=== PATIENT | female | born 1970 | race Caucasian/White ===

== ENCOUNTER → 2018-12-16 | Day surgery (SDC) | payer OTHER ==
[~2018-12-16] MED LIST: CHOL100013 PO; CYCL1DRO EACHEYE; HYDROmorphone 2 MG/ML VIAL IV PRN; IV RINGERS,LACTATED 1000ML 1,000 ML IV SCH; LIDOCAINE 1% PF 2 ML VIAL. ID PRN; MORPHINE SULFATE 2 MG/ML VIAL. IV PRN; MULT1TAB52 PO; OMEP20TA63 PO; ONDANSETRON PF 4 MG/2 ML VIAL. IV PRN; PROCHLORPERAZINE 10 MG/2 ML VIAL. IV PRN; PROPOFOL 40 ML IV ONE; PROPOFOL 60 ML IV ONE; fentaNYL PF VIAL 100 MCG/2 ML VIAL IV PRN
[2018-12-16 08:16] LABS: U PREG PATIENT NEGATIVE
[2018-12-16 09:45] VITALS: BP 149/72
--- NOTE | 2018-12-17 15:06 | PATHOLOGY ---
[facility] Accession Number: [id number] . 01 Material submitted: . PART A: small bowel - SMALL BOWEL BIOPSY PART B: stomach - RANDOM GASTRIC BIOSY PART C: esophagus, E-G Junction - GE JUNCTION BIOPSY PART D: esophagus - DISTAL ESOPHAGUS BIOPSY. Modifiers: distal PART E: esophagus - PROXIMAL ESOPHAGUS BIOPSY. Modifiers: proximal PART F: colon - ASCENDING COLON POLYP. Modifiers: ascending PART G: colon - RANDOM COLON BIOPSY PART H: colon - TRANSVERSE POLYP BIOPSY. Modifiers: transverse PART I: colon - DESCENDING POLYP. Modifiers: descending . 01 Clinical history: . GERD, [facility] . 02 Diagnosis: A. Small bowel biopsies: - No significant pathologic abnormalities. . B. Random gastric biopsies: - Mild chronic gastritis. . C. Gastroesophageal junction biopsies: - Segments of esophagogastric and gastric mucosa showing chronic inflammation. . D. Esophageal biopsies, distal esophagus: - Segments of mildly hyperplastic squamous esophageal mucosa consistent with reflux esophagitis. . E. Esophageal biopsies, proximal esophagus: - Segments of mildly hyperplastic squamous esophageal mucosa. . F. Colon biopsies, ascending colon polyp: - Consistent with hyperplastic polyp / prominent mucosal fold. . G. Colonic mucosa, random colon biopsies: - No significant pathologic abnormalities, with several mucosal-associated lymphoid aggregates. . H. Colon biopsies, transverse colon polyp: - Tubular adenoma. . I. Colon biopsy, descending colon polyp: - Tubular adenoma. . (JPM:ryan; 12/17/2018) QL/12/17/2018 . 02 Comment: Sections of the small bowel biopsy reveal segments of duodenal mucosa. Where best oriented, the mucosal villi show no sprue-like changes or significant inflammatory changes. Sections of the random gastric biopsy reveal segments of gastric body and gastric antral mucosa. The gastric body mucosa shows congestion and mild superficial chronic inflammation. The gastric antral mucosa also shows congestion and mild chronic inflammation. A properly-controlled immunoperoxidase stain for Helicobacter is negative for Helicobacter organisms. Sections of the gastroesophageal junction biopsy reveal segments of esophagogastric mucosa showing mild to moderate chronic inflammation. There is no evidence of Ruiz's change, dysplasia or malignancy. Sections of the distal and proximal esophageal biopsies appear similar and reveal segments of mildly hyperplastic squamous esophageal mucosa consistent with reflux esophagitis. There is no evidence of Ruiz's change, dysplasia or malignancy. Sections of the ascending colon biopsy reveal segments of colonic mucosa consistent with hyperplastic polyp / prominent fold. There are no adenomatous changes or evidence of malignancy. Sections of the random colon biopsy reveal multiple segments of colonic mucosa containing several mucosal-associated lymphoid aggregates. There is no evidence of a chronic destructive colitis, lymphocytic colitis or collagenous colitis. Sections of the transverse colon and descending colon polyp biopsies appear similar and reveal tubular adenomas showing no high grade dysplasia or evidence of malignancy. . Special stain performed: Immunoperoxidase stain for Helicobacter on B1. (JPM:mml; 12/17/2018) . 02 Electronically signed: . Kervin York MD, Pathologist NPI- [id number] . 01 Gross description: . A. Received in formalin labeled "JosephAna, small bowel BX," are 4 segments of owens soft tissue measuring 1.1 x 0.9 x 0.2 cm in aggregate dimensions and ranging from 0.4 to 0.5 cm in maximum dimension. The specimen is submitted entirely in cassette A1. . B. Received in formalin labeled "JosephLatriciaie, random gastric BX, rule out H. pylori," are 4 segments of owens soft tissue measuring 0.9 x 0.9 x 0.3 cm in aggregate dimensions and ranging from 0.4 to 0.5 cm in maximum dimension. The specimen is submitted entirely in cassette B1. . C. Received in formalin labeled "Joseph, Ana, GE junction BX," are 2 segments of owens soft tissue measuring 0.9 x 0.2 x 0.2 cm in aggregate dimensions and ranging from 0.4 to 0.5 cm in maximum dimension. The specimen is submitted entirely in cassette C1. . D. Received in formalin labeled "JosephAna carballo, distal esophagus BX," are 3 segments of owens soft tissue measuring 0.6 x 0.4 x 0.2 cm in aggregate dimensions and ranging from 0.2 to 0.3 cm in maximum dimension. The specimen is submitted entirely in cassette D1. . E. Received in formalin labeled "Ana Ruiz, proximal esophagus biopsy," are 3 segments of owens soft tissue measuring 0.5 x 0.5 x 0.1 cm in aggregate dimensions and ranging from 0.2 to 0.3 cm in maximum dimension. The specimen is submitted entirely in cassette E1. . F. Received in formalin labeled "Ana Ruiz, ascending colon polyp BX," are 2 segments of owens soft tissue measuring 0.9 x 0.3 x 0.2 cm in aggregate dimensions and ranging from 0.4 to 0.5 cm in maximum dimension. The specimen is submitted entirely in cassette F1. . G. Received in formalin labeled "Ana Ruiz, random colon BX," are 6 segments of owens soft tissue measuring 1.3 x 0.5 x 0.1 cm in aggregate dimensions and ranging from 0.2 to 0.3 cm in maximum dimension. The specimen is submitted entirely in cassette G1. . H. Received in formalin labeled "Ana Ruiz, transverse polyp BX," are 4 segments of owens soft tissue measuring 0.9 x 0.8 x 0.2 cm in aggregate dimensions and ranging from 0.1 to 0.3 cm in maximum dimension. The specimen is submitted entirely in cassette H1. . I. Received in formalin labeled "Ana Ruiz, descending polyp BX," is a single segment of owens soft tissue measuring 0.4 cm in maximum dimension. The specimen is entirely submitted in cassette I1. (TSD; 12/16/2018) TOB/TOB . 02 Pathologist provided ICD-10: K29.50, K20.8, K21.0, K63.5, D12.3, D12.4 . 02 CPT . 172666, 030786, 259954, 019700, 718600, 269937, 283178, 020579, 489226, D61301 Specimen Comment: A courtesy copy of this report has been sent to Specimen Comment: [phone], . Specimen Comment: Report sent to / DR SAAVEDRA Performed at: [address], [place], [place] [id number] MD Noé Benson MD Phone: [phone] Performed at: [address] [id number] MD Kervin York MD Phone: [phone]
== END | disposition home or self-care (01) ==
LOC: ENDOS 06:56 → EDSEX 06:56
PROVIDERS: ATTEND Internal Medicine
DX: D12.3 Benign neoplasm of transverse colon (principal); D12.4 Benign neoplasm of descending colon; K63.5 Polyp of colon; K57.30 Diverticulosis of large intestine without perforation or abscess without bleeding; K64.4 Residual hemorrhoidal skin tags; K64.0 First degree hemorrhoids; K21.0 Gastro-esophageal reflux disease with esophagitis; K31.89 Other diseases of stomach and duodenum; K22.8 Other specified diseases of esophagus; K29.50 Unspecified chronic gastritis without bleeding; Z88.7 Allergy status to serum and vaccine; I10 Essential (primary) hypertension; Z98.890 Other specified postprocedural states; Z79.899 Other long term (current) drug therapy; Z82.49 Family history of ischemic heart disease and other diseases of the circulatory system; Z72.89 Other problems related to lifestyle
CPT/HCPCS: 43239; 45380; 81025; 88305; 88342; J2704